=== PATIENT | male | born 1940 | race African-American/Black ===

== ENCOUNTER 2021-09-14 18:23 | Inpatient (IN) | payer OTHER ==
[~2021-09-14] VITALS: Ht 182.9 cm; Wt 75.3 kg
[2021-09-14] MEDS ORDERED: PIPERACILLIN/TAZ 3.375G PREMIX 50 ML IV ONE (18:45)
[2021-09-14 19:01] LABS: HEMATOCRIT. 30.3 % (42.0-52.0); HEMOGLOBIN. 9.5 g/dL (14.0-18.0); MEAN CORPUSCULAR HEMOGLOBIN 31.1 pg (28.0-32.0); MEAN CORPUSCULAR VOLUME 98.7 fL (80.0-94.0); MEAN PLATELET VOLUME 8.7 fl (7.4-10.4); PLATELET 152 x1000/uL (130-400); RED BLOOD CELL COUNT 3.07 mill/uL (4.7-6.1); RED CELL DISTRIBUTION WIDTH 18.6 % (11.6-14.6)
[2021-09-14 19:06] LABS: CHLORIDE 105 mEq/L (98-107)
[2021-09-14 19:39] LABS: PLATELET ESTIMATE NORMAL
[2021-09-14] MEDS ORDERED: NOREPINEPHRINE 8MG/250ML PMX 250 ML IV ONE (21:45)
[2021-09-14] MEDS ORDERED: NOREPINEPHRINE 8 MG in DEXT 5% WATER 242 ML IV PRN (22:00)
[2021-09-14] MEDS ORDERED: ONDANSETRON HCL 4MG/2ML INJ IV PRN (23:00)
[2021-09-14] MEDS ORDERED: GUAIFENESIN 200MG/10ML SUGAR FREE UDC PO PRN (23:00)
[2021-09-14] MEDS ORDERED: CLONIDINE 0.1MG TABLET PO PRN (23:00)
[2021-09-14] MEDS ORDERED: DOCUSATE SODIUM 100MG CAPSULE PO PRN (23:00)
[2021-09-14] MEDS ORDERED: IPRATROPIUM/ALBUTEROL 0.5-3(2.5)MG/3ML NEB NEB PRN (23:00)
[2021-09-14] MEDS ORDERED: MAGNESIUM/ALUMINUM HYDROXIDE/SIMETHICONE 30ML UDC PO PRN (23:00)
[2021-09-14] MEDS ORDERED: NITROGLYCERIN 0.4MG TABLET SL SL PRN (23:00)
[2021-09-14] MEDS ORDERED: ACETAMINOPHEN 325MG TABLET PO PRN ×2 (23:00)
[2021-09-14] MEDS ORDERED: PIPERACILLIN/TAZ 3.375G PREMIX 50 ML IV SCH (23:00)
[2021-09-15] MEDS ORDERED: KCL 10MEQ/50ML PREMIX 50 ML IV SCH
[2021-09-15] MEDS ORDERED: NOREPINEPHRINE 8 MG in DEXT 5% WATER 242 ML IV SCH (00:15)
[2021-09-15] MEDS: DEXT 5%/0.45% NACL 1000ML 1,000 ML IV SCH ×2 (01:00→17:00)
[2021-09-15] MEDS ORDERED: VANCOMYCIN 1G PREMIX 200 ML IV SCH (01:00)
[2021-09-15 01:06] LABS: FOLIC ACID (FOLATE) SERUM 13.2 ng/mL (>5.38)
[2021-09-15] MEDS ORDERED: NOREPINEPHRINE 8 MG in DEXT 5% WATER 242 ML IV PRN (03:00)
[2021-09-15] MEDS: IPRATROPIUM/ALBUTEROL 0.5-3(2.5)MG/3ML NEB HHN SCH ×7 (04:00→20:00)
[2021-09-15 09:23] LABS: HEMATOCRIT. 28.6 % (42.0-52.0); HEMOGLOBIN. 9.3 g/dL (14.0-18.0); MEAN CORPUSCULAR HEMOGLOBIN 32.2 pg (28.0-32.0); MEAN CORPUSCULAR VOLUME 98.9 fL (80.0-94.0); MEAN PLATELET VOLUME 8.5 fl (7.4-10.4); PLATELET 140 x1000/uL (130-400); RED BLOOD CELL COUNT 2.89 mill/uL (4.7-6.1); RED CELL DISTRIBUTION WIDTH 18.1 % (11.6-14.6)
[2021-09-15 09:27] LABS: CHLORIDE 105 mEq/L (98-107)
[2021-09-15 09:37] LABS: CREATINE KINASE 16 IU/L (39-308)
[2021-09-15 09:40] LABS: CREATINE KINASE MB FRACTION 1.2 ng/mL (0.5-3.6)
[2021-09-15] MEDS: ASPIRIN 325MG EC TABLET PO SCH (09:50)
[2021-09-15] MEDS: CHOLECALCIFEROL (D3) 1000 UNIT TABLET PO SCH (09:50)
[2021-09-15] MEDS: ZINC SULFATE 220 MG ( 50 ) CAPSULE PO SCH (09:50)
[2021-09-15] MEDS: PIPERACILLIN/TAZ 3.375G PREMIX 50 ML IV SCH ×2 (09:50→21:00)
[2021-09-15] MEDS: ASCORBIC ACID 500 MG TABLET PO SCH ×2 (09:51→21:00)
[2021-09-15] MEDS: ENOXAPARIN 40MG/0.4ML SYR SUBCUT SCH (09:51)
[2021-09-15] MEDS ORDERED: IOHEXOL-300 100 ML BOTTLE ONE (10:33)
[2021-09-15] MEDS ORDERED: VANCOMYCIN 500MG PREMIX 100 ML IV NR (11:00)
[2021-09-15] MEDS: PANTOPRAZOLE SODIUM 40 MG/VIAL IV SCH (11:48)
[2021-09-15 15:38] LABS: CREATINE KINASE MB FRACTION 1.3 ng/mL (0.5-3.6)
[2021-09-15 16:55] LABS: PLATELET ESTIMATE NORMAL
[2021-09-16] MEDS: IPRATROPIUM/ALBUTEROL 0.5-3(2.5)MG/3ML NEB HHN SCH ×6 (00:12→20:23)
[2021-09-16] MEDS ORDERED: NOREPINEPHRINE 8 MG in DEXT 5% WATER 242 ML IV PRN (01:00)
[2021-09-16] MEDS: CHOLECALCIFEROL (D3) 1000 UNIT TABLET PO SCH (09:00)
[2021-09-16] MEDS: ASPIRIN 325MG EC TABLET PO SCH (09:00)
[2021-09-16] MEDS: PANTOPRAZOLE SODIUM 40 MG/VIAL IV SCH (09:00)
[2021-09-16] MEDS: PIPERACILLIN/TAZ 3.375G PREMIX 50 ML IV SCH (09:00)
[2021-09-16] MEDS: ZINC SULFATE 220 MG ( 50 ) CAPSULE PO SCH (09:00)
[2021-09-16] MEDS: ENOXAPARIN 40MG/0.4ML SYR SUBCUT SCH (09:00)
[2021-09-16] MEDS: ASCORBIC ACID 500 MG TABLET PO SCH ×2 (09:00→22:14)
[2021-09-16 16:04] VITALS: BP 126/73
[2021-09-16] MEDS ORDERED: ESCI5SOL2 PO (16:57)
[2021-09-16] MEDS ORDERED: ESCI5TAB MT (16:58)
[2021-09-16 18:00] VITALS: BP 141/70
[2021-09-16 18:00] LABS: HEPATITIS B SURFACE ANTIGEN NEGATIVE
[2021-09-16 18:53] VITALS: BP 141/71
[2021-09-16 20:00] VITALS: BP 125/52
[2021-09-16] MEDS ORDERED: VANCOMYCIN 750 MG in DEXT 5% WATER 250 ML IV NR (21:00)
[2021-09-16 22:00] VITALS: BP 91/48
[2021-09-16] MEDS: PIPERACILLIN/TAZOBACTAM 3.375 G in DEXTROSE 5% WATER 50 ML IV SCH (22:14)
[2021-09-16] MEDS: ZOLPIDEM TARTRATE 5MG TABLET PO PRN (22:14)
[2021-09-16 23:52] VITALS: BP 117/66
[2021-09-17] VITALS (7 sets, daily range): BP systolic 115–142; BP diastolic 58–86
[2021-09-17] MEDS: IPRATROPIUM/ALBUTEROL 0.5-3(2.5)MG/3ML NEB HHN SCH ×6 (00:12→21:19)
[2021-09-17] MEDS: ENOXAPARIN 30MG/0.3ML SYR SUBCUT SCH (09:25)
[2021-09-17] MEDS: ASCORBIC ACID 500 MG TABLET PO SCH ×2 (09:26→21:15)
[2021-09-17] MEDS: ASPIRIN 325MG EC TABLET PO SCH (09:26)
[2021-09-17] MEDS: PANTOPRAZOLE SODIUM 40 MG/VIAL IV SCH (09:26)
[2021-09-17] MEDS: CHOLECALCIFEROL (D3) 1000 UNIT TABLET PO SCH (09:26)
[2021-09-17] MEDS: ZINC SULFATE 220 MG ( 50 ) CAPSULE PO SCH (09:26)
[2021-09-17] MEDS: PIPERACILLIN/TAZOBACTAM 3.375 G in DEXTROSE 5% WATER 50 ML IV SCH (09:27)
[2021-09-17 09:53] LABS: EOSINOPHILS % 2.7 % (0.0-5.0); HEMATOCRIT. 26.4 % (42.0-52.0); HEMOGLOBIN. 8.6 g/dL (14.0-18.0); LYMPHOCYTES % 7.8 % (20.0-50.0); MEAN CORPUSCULAR HEMOGLOBIN 32.3 pg (28.0-32.0); MEAN CORPUSCULAR VOLUME 99.5 fL (80.0-94.0); MONOCYTES % 8.6 % (2.0-8.0); NEUTROPHILS % 79.9 % (40.0-76.0); PLATELET 119 x1000/uL (130-400); RED BLOOD CELL COUNT 2.65 mill/uL (4.7-6.1); RED CELL DISTRIBUTION WIDTH 18.7 % (11.6-14.6)
[2021-09-17 10:03] LABS: PHOSPHORUS 3.7 mg/dL (2.5-4.9)
[2021-09-17] MEDS: DEXT 5%/0.45% NACL 1000ML 1,000 ML IV SCH (12:47)
[2021-09-17] MEDS ORDERED: [UNRECOGNIZED DRUG - REMARK] XX SCH (15:45)
[2021-09-17] MEDS ORDERED: GENTAMICIN SULFATE 150 MG in SODIUM CHLORIDE 0.9% 100 ML IV NR (17:00)
[2021-09-17] MEDS: CEFEPIME 2,000 MG in DEXT 5% WATER 100 ML IV SCH (18:22)
[2021-09-17] MEDS: ZOLPIDEM TARTRATE 5MG TABLET PO PRN (21:15)
[2021-09-18] VITALS (8 sets, daily range): BP systolic 97–144; BP diastolic 40–86
[2021-09-18] MEDS ORDERED: HEPARIN 1000 UNITS/ML 10ML ONE (09:49)
[2021-09-18] MEDS: IPRATROPIUM/ALBUTEROL 0.5-3(2.5)MG/3ML NEB HHN SCH ×4 (10:52→21:47)
[2021-09-18] MEDS: ENOXAPARIN 30MG/0.3ML SYR SUBCUT SCH (10:53)
[2021-09-18] MEDS: ASPIRIN 325MG EC TABLET PO SCH (10:55)
[2021-09-18] MEDS: PANTOPRAZOLE SODIUM 40 MG/VIAL IV SCH (10:55)
[2021-09-18] MEDS: ZINC SULFATE 220 MG ( 50 ) CAPSULE PO SCH (10:56)
[2021-09-18] MEDS: ASCORBIC ACID 500 MG TABLET PO SCH ×2 (10:56→20:44)
[2021-09-18] MEDS: CHOLECALCIFEROL (D3) 1000 UNIT TABLET PO SCH (10:56)
[2021-09-18] MEDS: CEFEPIME 2,000 MG in DEXT 5% WATER 100 ML IV SCH (18:13)
[2021-09-18] MEDS: DEXT 5%/0.45% NACL 1000ML 1,000 ML IV SCH (18:13)
[2021-09-19] VITALS (7 sets, daily range): BP systolic 101–141; BP diastolic 49–67
[2021-09-19] MEDS: ENOXAPARIN 30MG/0.3ML SYR SUBCUT SCH (08:41)
[2021-09-19] MEDS: ASCORBIC ACID 500 MG TABLET PO SCH ×2 (08:41→20:36)
[2021-09-19] MEDS: PANTOPRAZOLE SODIUM 40 MG/VIAL IV SCH (08:41)
[2021-09-19] MEDS: ASPIRIN 325MG EC TABLET PO SCH (08:41)
[2021-09-19] MEDS: CHOLECALCIFEROL (D3) 1000 UNIT TABLET PO SCH (08:41)
[2021-09-19] MEDS: ZINC SULFATE 220 MG ( 50 ) CAPSULE PO SCH (08:42)
[2021-09-19 08:56] LABS: BASOPHILS % 0.7 % (0.0-2.0); EOSINOPHILS % 3.5 % (0.0-5.0); HEMOGLOBIN. 8.5 g/dL (14.0-18.0); LYMPHOCYTES % 7.6 % (20.0-50.0); MEAN CORPUSCULAR HEMOGLOBIN 32.1 pg (28.0-32.0); MEAN CORPUSCULAR VOLUME 97.6 fL (80.0-94.0); MEAN PLATELET VOLUME 9.2 fl (7.4-10.4); MONOCYTES % 9.3 % (2.0-8.0); NEUTROPHILS % 78.9 % (40.0-76.0); PLATELET 114 x1000/uL (130-400); RED BLOOD CELL COUNT 2.66 mill/uL (4.7-6.1); RED CELL DISTRIBUTION WIDTH 18.2 % (11.6-14.6)
[2021-09-19 09:12] LABS: PHOSPHORUS 3.4 mg/dL (2.5-4.9)
[2021-09-19 09:14] LABS: GENTAMICIN RANDOM 2.1 ug/mL
[2021-09-19] MEDS: IPRATROPIUM/ALBUTEROL 0.5-3(2.5)MG/3ML NEB HHN SCH ×4 (10:15→20:56)
[2021-09-19] MEDS: CEFEPIME 2,000 MG in DEXT 5% WATER 100 ML IV SCH (17:24)
[2021-09-19] MEDS: ZOLPIDEM TARTRATE 5MG TABLET PO PRN (20:36)
[2021-09-20] VITALS: BP 109/79
[2021-09-20 04:00] VITALS: BP 144/73
[2021-09-20 07:30] LABS: BASOPHILS % 0.9 % (0.0-2.0); EOSINOPHILS % 5.8 % (0.0-5.0); HEMATOCRIT. 26.5 % (42.0-52.0); HEMOGLOBIN. 8.7 g/dL (14.0-18.0); LYMPHOCYTES % 11.6 % (20.0-50.0); MEAN CORPUSCULAR HEMOGLOBIN 32.1 pg (28.0-32.0); MEAN CORPUSCULAR VOLUME 97.2 fL (80.0-94.0); MEAN PLATELET VOLUME 9.6 fl (7.4-10.4); MONOCYTES % 14.5 % (2.0-8.0); NEUTROPHILS % 67.2 % (40.0-76.0); PLATELET 108 x1000/uL (130-400); RED BLOOD CELL COUNT 2.73 mill/uL (4.7-6.1); RED CELL DISTRIBUTION WIDTH 18.7 % (11.6-14.6)
[2021-09-20 07:57] LABS: GENTAMICIN RANDOM 2.3 ug/mL
[2021-09-20 08:00] VITALS: BP 114/83
[2021-09-20] MEDS: IPRATROPIUM/ALBUTEROL 0.5-3(2.5)MG/3ML NEB HHN SCH ×2 (08:04→13:17)
[2021-09-20] MEDS: PANTOPRAZOLE SODIUM 40 MG/VIAL IV SCH (09:17)
[2021-09-20] MEDS: ZINC SULFATE 220 MG ( 50 ) CAPSULE PO SCH (09:17)
[2021-09-20] MEDS: CHOLECALCIFEROL (D3) 1000 UNIT TABLET PO SCH (09:17)
[2021-09-20] MEDS: ASCORBIC ACID 500 MG TABLET PO SCH (09:17)
[2021-09-20] MEDS: ASPIRIN 325MG EC TABLET PO SCH (09:17)
[2021-09-20] MEDS: ENOXAPARIN 30MG/0.3ML SYR SUBCUT SCH (09:21)
[2021-09-20 12:00] VITALS: BP 140/75
[2021-09-20 16:23] VITALS: BP 140/75
== END 2021-09-20 16:50 | disposition short-term general hospital (02) | DRG 871 ==
LOC: ER 18:23 → MICUSO 22:49 → 5EST 09-16 13:40 → 6WST 09-19 01:48
PROVIDERS: ADMIT Internal Medicine; ATTEND Internal Medicine
PROC: 05H933Z Insertion of Infusion Device into Right Brachial Vein, Percutaneous Approach (ICD-10-PCS; principal; 2021-09-15)
PROC: B54MZZA Ultrasonography of Right Upper Extremity Veins, Guidance (ICD-10-PCS; 2021-09-15)
PROC: 5A1D70Z Performance of Urinary Filtration, Intermittent, Less than 6 Hours Per Day (ICD-10-PCS; 2021-09-16)
PROC: 5A1D70Z Performance of Urinary Filtration, Intermittent, Less than 6 Hours Per Day (ICD-10-PCS; 2021-09-18)
PROC: 5A1D70Z Performance of Urinary Filtration, Intermittent, Less than 6 Hours Per Day (ICD-10-PCS; 2021-09-20)
DX: A41.52 Sepsis due to Pseudomonas (principal); R65.21 Severe sepsis with septic shock; J96.01 Acute respiratory failure with hypoxia; N18.6 End stage renal disease; E43 Unspecified severe protein-calorie malnutrition; J18.9 Pneumonia, unspecified organism; G92.8 Other toxic encephalopathy; G92.9 Unspecified toxic encephalopathy; I50.33 Acute on chronic diastolic (congestive) heart failure; I13.2 Hypertensive heart and chronic kidney disease with heart failure and with stage 5 chronic kidney disease, or end stage renal disease; I82.412 Acute embolism and thrombosis of left femoral vein; E11.22 Type 2 diabetes mellitus with diabetic chronic kidney disease; E87.6 Hypokalemia; E78.5 Hyperlipidemia, unspecified; F03.90 Unspecified dementia, unspecified severity, without behavioral disturbance, psychotic disturbance, mood disturbance, and anxiety; I48.91 Unspecified atrial fibrillation; D63.8 Anemia in other chronic diseases classified elsewhere; Z20.822 Contact with and (suspected) exposure to COVID-19; Z99.2 Dependence on renal dialysis; Z82.49 Family history of ischemic heart disease and other diseases of the circulatory system; Z79.01 Long term (current) use of anticoagulants; Z83.3 Family history of diabetes mellitus; Z86.718 Personal history of other venous thrombosis and embolism; Z68.22 Body mass index [BMI] 22.0-22.9, adult; Z88.8 Allergy status to other drugs, medicaments and biological substances
CPT/HCPCS: 36415; 71045; 71260; 76937; 78806; 80048; 80053; 80061; 80170; 80202; 82550; 82553; 82607; 82746; 83036; 83540; 83550; 83605; 83735; 83880; 84100; 84145; 84443; 84484; 85025; 86705; 86709; 86803; 87077; 87186; 87340; 87426; 93005; 93306; 93970; 94640; 99291; A6261; A9547; C1725; C9113; J0692; J1580; J1644; J1650; J2543; J3370; J3480; J3490; J7050; J7060; Q9967

== ENCOUNTER 2022-06-13 15:10 | Emergency (ER) | payer OTHER ==
[~2022-06-13] VITALS: Ht 180.3 cm; Wt 73.0 kg
[~2022-06-13 15:10] MED LIST: ESCI5SOL2 PO; ESCI5TAB MT
[2022-06-13] MEDS ORDERED: ACETAMINOPHEN 325MG TABLET PO STA (15:52)
[2022-06-13] MEDS ORDERED: SODIUM CHLORIDE 0.9% 1,000 ML IV ONE (16:00)
[2022-06-13 17:24] LABS: HEMATOCRIT. 22.8 % (42.0-52.0); HEMOGLOBIN. 7.5 g/dL (14.0-18.0); MEAN CORPUSCULAR HEMOGLOBIN 33.9 pg (28.0-32.0); MEAN CORPUSCULAR VOLUME 103.6 fL (80.0-94.0); MEAN PLATELET VOLUME 9.1 fl (7.4-10.4); PLATELET 88 x1000/uL (130-400); RED CELL DISTRIBUTION WIDTH 16.5 % (11.6-14.6)
[2022-06-13 17:29] LABS: CHLORIDE 99 mEq/L (98-107)
[2022-06-13 17:32] LABS: PROTHROMBIN TIME 11.1 sec (9.6-11.0)
[2022-06-13 20:09] LABS: PLATELET ESTIMATE DECREASED
[2022-06-13 21:12] VITALS: BP 135/66
== END 2022-06-13 21:46 | disposition short-term general hospital (02) ==
LOC: ER 15:10 → EDBEDREQ 16:02 → CANBEDREQ 18:40 → ER 21:46
DX: S72.142A Displaced intertrochanteric fracture of left femur, initial encounter for closed fracture (principal); W18.39XA Other fall on same level, initial encounter; Y93.89 Activity, other specified; Y92.89 Other specified places as the place of occurrence of the external cause; Y99.8 Other external cause status; F03.90 Unspecified dementia, unspecified severity, without behavioral disturbance, psychotic disturbance, mood disturbance, and anxiety; E78.00 Pure hypercholesterolemia, unspecified; I10 Essential (primary) hypertension; Z99.2 Dependence on renal dialysis; Z20.822 Contact with and (suspected) exposure to COVID-19
CPT/HCPCS: 36415; 70450; 71045; 73502; 80053; 82962; 84484; 85025; 85610; 86850; 86900; 86901; 87040; 87426; 93005; 96360; 99285; C9803; J7030

== ENCOUNTER 2022-07-26 16:46 | Inpatient (IN) | payer OTHER ==
[~2022-07-26] VITALS: Ht 172.7 cm; Wt 74.2 kg
[2022-07-26] MEDS ORDERED: SODIUM CHLORIDE 0.9% 1000ML BAG (SEPSIS BOLUS) IV ONE (17:00)
[2022-07-26 18:09] LABS: HEMATOCRIT. 29.3 % (42.0-52.0); HEMOGLOBIN. 9.6 g/dL (14.0-18.0); MEAN CORPUSCULAR HEMOGLOBIN 31.4 pg (28.0-32.0); MEAN CORPUSCULAR VOLUME 95.9 fL (80.0-94.0); MEAN PLATELET VOLUME 8.9 fl (7.4-10.4); PLATELET 102 x1000/uL (130-400); RED BLOOD CELL COUNT 3.06 mill/uL (4.7-6.1); RED CELL DISTRIBUTION WIDTH 18.6 % (11.6-14.6)
[2022-07-26 18:16] LABS: CHLORIDE 105 mEq/L (98-107)
[2022-07-26] MEDS ORDERED: PIPERACILLIN/TAZ 3.375G PREMIX 50 ML IV ONE (18:30)
[2022-07-26] MEDS ORDERED: OSELTAMIVIR 75MG CAPSULE PO NR (18:30)
[2022-07-26] MEDS ORDERED: VANCOMYCIN 1G PREMIX 200 ML IV ONE (18:30)
[2022-07-26] MEDS ORDERED: ASPIRIN 81MG TABLET PO ONE (19:00)
[2022-07-26] MEDS ORDERED: OSELTAMIVIR 75MG CAPSULE PO ONE (19:00)
[2022-07-26] MEDS ORDERED: ASPIRIN 81MG TABLET PO NR (19:00)
[2022-07-26 19:57] LABS: D-DIMER 1.45 mg/L FEU (<0.50); INR 1.1; PROTHROMBIN TIME 11.9 sec (9.6-11.0)
[2022-07-26 20:05] LABS: PARTIAL THROMBOPLASTIN TIME > 200.0 sec (23.4-31.0)
[2022-07-26 20:32] LABS: PLATELET ESTIMATE DECREASED
[2022-07-26 21:11] LABS: INR 1.1; PARTIAL THROMBOPLASTIN TIME 52.4 sec (23.4-31.0); PROTHROMBIN TIME 11.5 sec (9.6-11.0)
[2022-07-26] MEDS: VANCOMYCIN 1G PREMIX 200 ML IV NR (21:45)
[2022-07-26] MEDS ORDERED: IOHEXOL-350 100 ML BOTTLE ONE (22:01)
[2022-07-26] MEDS ORDERED: NITROGLYCERIN 0.4MG TABLET SL SL PRN (22:15)
[2022-07-26] MEDS ORDERED: ZOLPIDEM TARTRATE 5MG TABLET PO PRN (22:15)
[2022-07-26] MEDS ORDERED: IPRATROPIUM/ALBUTEROL 0.5-3(2.5)MG/3ML NEB NEB PRN (22:15)
[2022-07-26] MEDS ORDERED: DOCUSATE SODIUM 100MG CAPSULE PO PRN (22:15)
[2022-07-26] MEDS ORDERED: MAGNESIUM/ALUMINUM HYDROXIDE/SIMETHICONE 30ML UDC PO PRN (22:15)
[2022-07-26] MEDS ORDERED: ACETAMINOPHEN 325MG TABLET PO PRN ×2 (22:15)
[2022-07-26] MEDS ORDERED: ENOXAPARIN 40MG/0.4ML SYR SUBCUT SCH (22:15)
[2022-07-26] MEDS ORDERED: ONDANSETRON HCL 4MG/2ML INJ IV PRN (22:15)
[2022-07-26] MEDS ORDERED: GUAIFENESIN 200MG/10ML SUGAR FREE UDC PO PRN (22:15)
[2022-07-26] MEDS ORDERED: PIPERACILLIN/TAZ 3.375G PREMIX 50 ML IV SCH (22:15)
[2022-07-26] MEDS: ENOXAPARIN 30MG/0.3ML SYR SUBCUT SCH (23:15)
[2022-07-26] MEDS ORDERED: DEXAMETHASONE 10 MG/ML VIAL IV ONE (23:30)
[2022-07-27] MEDS: VANCOMYCIN 1G PREMIX 200 ML IV NR (00:01)
[2022-07-27] MEDS: ASPIRIN 325MG EC TABLET PO SCH (09:00)
[2022-07-27] MEDS ORDERED: PIPERACILLIN/TAZOBACTAM 3.375 G in DEXTROSE 5% WATER 50 ML IV SCH ×2 (09:00→21:00)
[2022-07-27] MEDS ORDERED: PIPERACILLIN/TAZ 3.375G PREMIX 50 ML IV NR (09:45)
[2022-07-27] MEDS: FAMOTIDINE 20MG TABLET PO SCH (09:48)
[2022-07-27] MEDS: SEVELAMER CARBONATE 800 MG TABLET PO SCH ×3 (09:48→18:36)
[2022-07-27] MEDS: ZINC SULFATE 220 MG ( 50 ) CAPSULE PO SCH (09:48)
[2022-07-27] MEDS: ASCORBIC ACID 500 MG TABLET PO SCH ×2 (09:48→21:08)
[2022-07-27 10:10] LABS: BASOPHILS % 0.4 % (0.0-2.0); EOSINOPHILS % 0.1 % (0.0-5.0); HEMATOCRIT. 28.2 % (42.0-52.0); HEMOGLOBIN. 9.2 g/dL (14.0-18.0); LYMPHOCYTES % 12.6 % (20.0-50.0); MEAN CORPUSCULAR HEMOGLOBIN 31.3 pg (28.0-32.0); MEAN CORPUSCULAR VOLUME 95.3 fL (80.0-94.0); MEAN PLATELET VOLUME 8.7 fl (7.4-10.4); MONOCYTES % 6.7 % (2.0-8.0); NEUTROPHILS % 80.2 % (40.0-76.0); PLATELET 91 x1000/uL (130-400); RED BLOOD CELL COUNT 2.96 mill/uL (4.7-6.1); RED CELL DISTRIBUTION WIDTH 18.9 % (11.6-14.6)
[2022-07-27 10:15] LABS: CHLORIDE 103 mEq/L (98-107)
[2022-07-27 10:23] LABS: PHOSPHORUS 3.7 mg/dL (2.5-4.9)
[2022-07-27 14:13] VITALS: BP 140/53
[2022-07-27] MEDS ORDERED: ATOR-2 PO (15:40)
[2022-07-27] MEDS ORDERED: LENA5CAP MT (15:40)
[2022-07-27] MEDS ORDERED: APIX2.5T PO (15:40)
[2022-07-27] MEDS ORDERED: MIDO10TA PO (15:40)
[2022-07-27] MEDS ORDERED: ESCI10TA MT (15:40)
[2022-07-27 16:00] VITALS: BP 126/66
[2022-07-27] MEDS ORDERED: VANCOMYCIN 500MG PREMIX 100 ML IV NR (16:00)
[2022-07-27 17:31] LABS: T4 FREE 1.01 ng/dL (0.76-1.46)
[2022-07-27 18:08] LABS: VITAMIN B12 SERUM 404 pg/mL (211-911)
[2022-07-27 18:45] LABS: HEPATITIS B SURFACE ANTIGEN NEGATIVE
[2022-07-27 20:00] VITALS: BP 108/77
[2022-07-27] MEDS: EPOETIN ALFA 4000UNITS/ML VIAL SUBCUT SCH (21:08)
[2022-07-27] MEDS: ENOXAPARIN 30MG/0.3ML SYR SUBCUT SCH (21:08)
[2022-07-27 21:11] LABS: FOLIC ACID (FOLATE) SERUM > 20.00 ng/mL (>5.38)
[2022-07-27] MEDS: PIPERACILLIN/TAZOBACTAM 3.375 G in DEXTROSE 5% WATER 50 ML IV SCH (22:30)
[2022-07-28] VITALS (13 sets, daily range): BP systolic 106–168; BP diastolic 58–88
[2022-07-28] MEDS: ASCORBIC ACID 500 MG TABLET PO SCH ×3 (08:51→21:20)
[2022-07-28] MEDS: ZINC SULFATE 220 MG ( 50 ) CAPSULE PO SCH (08:51)
[2022-07-28] MEDS: ASPIRIN 325MG EC TABLET PO SCH (08:51)
[2022-07-28] MEDS: SEVELAMER CARBONATE 800 MG TABLET PO SCH ×3 (08:51→17:31)
[2022-07-28] MEDS: FAMOTIDINE 20MG TABLET PO SCH (08:51)
[2022-07-28] MEDS: PIPERACILLIN/TAZOBACTAM 3.375 G in DEXTROSE 5% WATER 50 ML IV SCH ×2 (09:00→21:00)
[2022-07-28] MEDS ORDERED: LIDOCAINE HCL/PF 1% 10 MG/ML 5ML VIAL ONE (12:33)
[2022-07-28] MEDS ORDERED: TRAZ-252 PO (18:33)
[2022-07-28] MEDS: ENOXAPARIN 30MG/0.3ML SYR SUBCUT SCH ×2 (21:22→21:26)
[2022-07-29] VITALS: BP 135/63
[2022-07-29 04:00] VITALS: BP 110/67
[2022-07-29 08:00] VITALS: BP 139/82
[2022-07-29] MEDS: ZINC SULFATE 220 MG ( 50 ) CAPSULE PO SCH (08:59)
[2022-07-29] MEDS: FAMOTIDINE 20MG TABLET PO SCH (08:59)
[2022-07-29] MEDS: ASCORBIC ACID 500 MG TABLET PO SCH ×3 (08:59→21:09)
[2022-07-29] MEDS: SEVELAMER CARBONATE 800 MG TABLET PO SCH ×3 (08:59→17:06)
[2022-07-29] MEDS: ASPIRIN 325MG EC TABLET PO SCH (09:00)
[2022-07-29] MEDS ORDERED: LIDOCAINE HCL 1% 10 MG/ML 10ML VIAL ONE (10:22)
[2022-07-29] MEDS: PIPERACILLIN/TAZOBACTAM 3.375 G in DEXTROSE 5% WATER 50 ML IV SCH ×2 (12:34→21:09)
[2022-07-29] MEDS ORDERED: VANCOMYCIN 500MG PREMIX 100 ML IV SCH (14:30)
[2022-07-29 16:00] VITALS: BP 154/86
[2022-07-29 20:00] VITALS: BP 129/68
[2022-07-29] MEDS: EPOETIN ALFA 4000UNITS/ML VIAL SUBCUT SCH ×2 (21:00→21:10)
[2022-07-29] MEDS: ENOXAPARIN 30MG/0.3ML SYR SUBCUT SCH ×2 (21:09→21:17)
[2022-07-30] VITALS (19 sets, daily range): BP systolic 130–170; BP diastolic 68–103
[2022-07-30] MEDS: ZINC SULFATE 220 MG ( 50 ) CAPSULE PO SCH (09:26)
[2022-07-30] MEDS: ASPIRIN 325MG EC TABLET PO SCH (09:26)
[2022-07-30] MEDS: SEVELAMER CARBONATE 800 MG TABLET PO SCH ×3 (09:26→16:34)
[2022-07-30] MEDS: FAMOTIDINE 20MG TABLET PO SCH (09:26)
[2022-07-30] MEDS: ASCORBIC ACID 500 MG TABLET PO SCH ×2 (09:27→20:39)
[2022-07-30] MEDS: PIPERACILLIN/TAZOBACTAM 3.375 G in DEXTROSE 5% WATER 50 ML IV SCH ×2 (10:22→20:38)
[2022-07-30 11:49] LABS: BASOPHILS % 0.4 % (0.0-2.0); EOSINOPHILS % 3.3 % (0.0-5.0); HEMATOCRIT. 26.8 % (42.0-52.0); LYMPHOCYTES % 9.2 % (20.0-50.0); MEAN CORPUSCULAR HEMOGLOBIN 31.3 pg (28.0-32.0); MEAN CORPUSCULAR VOLUME 92.9 fL (80.0-94.0); MEAN PLATELET VOLUME 9.7 fl (7.4-10.4); MONOCYTES % 13.3 % (2.0-8.0); NEUTROPHILS % 73.8 % (40.0-76.0); PLATELET 89 x1000/uL (130-400); RED BLOOD CELL COUNT 2.89 mill/uL (4.7-6.1); RED CELL DISTRIBUTION WIDTH 18.6 % (11.6-14.6)
[2022-07-30 12:14] LABS: PHOSPHORUS 2.2 mg/dL (2.5-4.9)
[2022-07-30] MEDS ORDERED: MAGNESIUM 1 G PREMIX 100 ML IV NR (16:00)
[2022-07-30] MEDS: ENOXAPARIN 30MG/0.3ML SYR SUBCUT SCH ×2 (20:38→20:42)
[2022-07-31] VITALS (8 sets, daily range): BP systolic 126–182; BP diastolic 42–82
[2022-07-31] MEDS: CLONIDINE 0.1MG TABLET PO PRN ×2 (02:29→08:53)
[2022-07-31] MEDS ORDERED: VANCOMYCIN 500MG PREMIX 100 ML IV NR (08:00)
[2022-07-31] MEDS: ASCORBIC ACID 500 MG TABLET PO SCH ×2 (08:53→23:35)
[2022-07-31] MEDS: PIPERACILLIN/TAZOBACTAM 3.375 G in DEXTROSE 5% WATER 50 ML IV SCH ×2 (08:53→21:00)
[2022-07-31] MEDS: ZINC SULFATE 220 MG ( 50 ) CAPSULE PO SCH (08:53)
[2022-07-31] MEDS: FAMOTIDINE 20MG TABLET PO SCH (08:53)
[2022-07-31] MEDS: SEVELAMER CARBONATE 800 MG TABLET PO SCH ×2 (08:53→13:54)
[2022-07-31] MEDS: ASPIRIN 325MG EC TABLET PO SCH (08:54)
[2022-07-31 18:35] LABS: HEMOGLOBIN. 8.7 g/dL (14.0-18.0); MEAN CORPUSCULAR VOLUME 92.8 fL (80.0-94.0); RED BLOOD CELL COUNT 2.81 mill/uL (4.7-6.1); RED CELL DISTRIBUTION WIDTH 18.9 % (11.6-14.6)
[2022-07-31 18:45] LABS: PHOSPHORUS 3.7 mg/dL (2.5-4.9)
[2022-07-31 20:29] LABS: PLATELET ESTIMATE DECREASED
[2022-07-31 20:30] LABS: MEAN PLATELET VOLUME 9.5 fl (7.4-10.4); PLATELET 90 x1000/uL (130-400)
[2022-07-31] MEDS ORDERED: EPOETIN ALFA-EPBX 4,000 UNIT/ML VIAL SUBCUT SCH (21:00)
[2022-07-31] MEDS: ENOXAPARIN 30MG/0.3ML SYR SUBCUT SCH (22:30)
[2022-08-01] VITALS (15 sets, daily range): BP systolic 104–158; BP diastolic 64–92
[2022-08-01 07:14] LABS: HEMOGLOBIN. 7.6 g/dL (14.0-18.0); MEAN CORPUSCULAR HEMOGLOBIN 31.4 pg (28.0-32.0); MEAN CORPUSCULAR VOLUME 95.3 fL (80.0-94.0); MEAN PLATELET VOLUME 9.2 fl (7.4-10.4); PLATELET 84 x1000/uL (130-400); RED BLOOD CELL COUNT 2.41 mill/uL (4.7-6.1)
[2022-08-01 07:47] LABS: PHOSPHORUS 4.1 mg/dL (2.5-4.9)
[2022-08-01] MEDS: ASCORBIC ACID 500 MG TABLET PO SCH ×2 (09:07→21:31)
[2022-08-01] MEDS: ZINC SULFATE 220 MG ( 50 ) CAPSULE PO SCH (09:07)
[2022-08-01] MEDS: FAMOTIDINE 20MG TABLET PO SCH (09:08)
[2022-08-01] MEDS: ASPIRIN 325MG EC TABLET PO SCH (09:08)
[2022-08-01 18:46] LABS: PLATELET ESTIMATE DECREASED
[2022-08-01] MEDS: PIPERACILLIN/TAZOBACTAM 3.375 G in DEXTROSE 5% WATER 50 ML IV SCH (21:00)
[2022-08-01] MEDS: ENOXAPARIN 30MG/0.3ML SYR SUBCUT SCH (21:31)
== END 2022-08-01 23:39 | disposition short-term general hospital (02) | DRG 871 ==
LOC: ER 16:46 → 7EST 21:07 → EDBEDREQ 21:19 → EDBEDREQSVC 07-27 08:07 → ENRESERV 07-27 12:09
PROVIDERS: ADMIT Internal Medicine; ATTEND Internal Medicine
PROC: 5A1D70Z Performance of Urinary Filtration, Intermittent, Less than 6 Hours Per Day (ICD-10-PCS; principal; 2022-07-28)
PROC: 05HY33Z Insertion of Infusion Device into Upper Vein, Percutaneous Approach (ICD-10-PCS; 2022-07-29)
PROC: 5A1D70Z Performance of Urinary Filtration, Intermittent, Less than 6 Hours Per Day (ICD-10-PCS; 2022-07-30)
PROC: 5A1D70Z Performance of Urinary Filtration, Intermittent, Less than 6 Hours Per Day (ICD-10-PCS; 2022-08-01)
DX: A41.9 Sepsis, unspecified organism (principal); I50.33 Acute on chronic diastolic (congestive) heart failure; U07.1 COVID-19; J96.01 Acute respiratory failure with hypoxia; N18.6 End stage renal disease; J12.82 Pneumonia due to coronavirus disease 2019; E44.0 Moderate protein-calorie malnutrition; D61.818 Other pancytopenia; I13.2 Hypertensive heart and chronic kidney disease with heart failure and with stage 5 chronic kidney disease, or end stage renal disease; E78.00 Pure hypercholesterolemia, unspecified; E11.22 Type 2 diabetes mellitus with diabetic chronic kidney disease; D63.1 Anemia in chronic kidney disease; D53.9 Nutritional anemia, unspecified; I48.91 Unspecified atrial fibrillation; F03.90 Unspecified dementia, unspecified severity, without behavioral disturbance, psychotic disturbance, mood disturbance, and anxiety; Z99.2 Dependence on renal dialysis; Z68.24 Body mass index [BMI] 24.0-24.9, adult; Z79.899 Other long term (current) drug therapy; Z86.718 Personal history of other venous thrombosis and embolism; Z82.49 Family history of ischemic heart disease and other diseases of the circulatory system
CPT/HCPCS: 36415; 36573; 71045; 71275; 76770; 80048; 80053; 80061; 80202; 82607; 82746; 82962; 83036; 83540; 83550; 83605; 83735; 83880; 84100; 84145; 84439; 84443; 84484; 85025; 85379; 86705; 86709; 86803; 87340; 87426; 87804; 90935; 93005; 93970; 99291; C1725; C1769; C1893; C9803; J0885; J1100; J1650; J2543; J3370; J3475; J3490; J7030; J7060; Q9967

== ENCOUNTER 2024-03-07 14:44 | Emergency (ER) | payer OTHER ==
[~2024-03-07] VITALS: Ht 175.3 cm; Wt 70.0 kg
[~2024-03-07 14:44] MED LIST changes: +APIX2.5T PO; +ATOR-2 PO; +ESCI10TA MT; +LENA5CAP MT; +MIDO10TA PO; +TRAZ-252 PO
[2024-03-07 14:46] VITALS: O2SAT 96
[2024-03-07] MEDS: SODIUM CHLORIDE 0.9% 500 ML IV ONE (15:00)
[2024-03-07 16:03] LABS: HEMATOCRIT. 38.1 % (42.0-52.0); HEMOGLOBIN. 11.1 g/dL (14.0-18.0); MEAN CORPUSCULAR HEMOGLOBIN 30.9 pg (28.0-32.0); MEAN CORPUSCULAR HGB CONC 29.1 g/dL (31.0-37.0); MEAN CORPUSCULAR VOLUME 106.1 fL (80.0-94.0); MEAN PLATELET VOLUME 9.9 fl (7.4-10.4); PLATELET 70 x1000/uL (130-400); RED BLOOD CELL COUNT 3.59 mill/uL (4.7-6.1); RED CELL DISTRIBUTION WIDTH 20.7 % (11.6-14.6); WHITE BLOOD COUNT 5.5 x1000/uL (4.5-11.0)
[2024-03-07 16:04] LABS: CARBON DIOXIDE 21 mEq/L (21-32); CHLORIDE 106 mEq/L (98-107); DIFFERENTIAL COMMENT 1; POTASSIUM 5.3 mEq/L (3.5-5.1); SODIUM 139 mEq/L (136-145)
[2024-03-07 16:05] LABS: CALCIUM 8.7 mg/dL (8.7-10.4)
[2024-03-07 16:09] LABS: GLUCOSE 169 mg/dL (70-105)
[2024-03-07 16:10] LABS: UREA NITROGEN BLOOD 26 mg/dL (9-23)
[2024-03-07 16:15] LABS: CREATININE 5.2 mg/dL (0.6-1.3); LACTIC ACID 4.5 mmol/L (0.4-2.0)
[2024-03-07 16:16] LABS: TROPONIN I HIGH SENSITIVITY 64 ng/L (3.0-53)
[2024-03-07 17:21] VITALS: TEMP 97.2
[2024-03-07 17:22] LABS: PLATELET ESTIMATE DECREASED
[2024-03-07 17:23] LABS: ANISOCYTOSIS 3+
[2024-03-07 17:58] LABS: TROPONIN I HIGH SENSITIVITY 61 ng/L (3.0-53)
[2024-03-07 20:00] VITALS: BP 90/49; PULSE 55; RESP 14
== END 2024-03-07 21:02 | disposition home or self-care (01) ==
LOC: ER 14:44 → CANBEDREQ 19:02 → ER 21:02
DX: R55 Syncope and collapse (principal); E86.0 Dehydration; E78.00 Pure hypercholesterolemia, unspecified; I12.0 Hypertensive chronic kidney disease with stage 5 chronic kidney disease or end stage renal disease; N18.6 End stage renal disease; Z88.6 Allergy status to analgesic agent; Z79.899 Other long term (current) drug therapy
CPT/HCPCS: 36415; 71045; 80048; 83605; 83880; 84484; 85025; 93005; 96360; 96361; 99285